=== PATIENT | male | born 1995 ===

== ENCOUNTER 2016-07-19 08:11 | Emergency (ER) | payer OTHER ==
[2016-07-19 08:17] VITALS: TEMP 97
[2016-07-19 08:18] VITALS: BMI 24.9
--- NOTE | 2016-07-19 08:26 | ED PDOC ---
HPI: General Adult Time Seen by Provider: 07/19/16 08:17 Chief Complaint (Provider): left arm pain History Per: Patient History/Exam Limitations: no limitations Onset/Duration Of Symptoms: Days (Today) Current Symptoms Are (Timing): Still Present Additional Complaint(s): 21yo male comes to the ED complaining of left wrist pain after falling while working today. States pain is severe. No head injury, loss of consciousness, weakness, numbness, tingling. Ambulated here. PMD: none Past Medical History Reviewed: Historical Data, Nursing Documentation, Vital Signs Vital Signs: Last Vital Signs Temp 97 F L 07/19/16 08:16 Pulse 88 07/19/16 08:16 Resp BP 109/71 07/19/16 08:16 Pulse Ox 99 07/19/16 08:38 - Medical History PMH: No Chronic Diseases Denies: Asthma, Diabetes - Surgical History Surgical History: No Surg Hx - Family History Family History: States: Unknown Family Hx - Home Medications Home Medications: Ambulatory Orders Medication Instructions Recorded Ibuprofen [Motrin] 600 mg PO TID 7 Days 07/19/16 - Allergies Allergies/Adverse Reactions: Allergies Allergy/AdvReac Type Severity Reaction Status Date / Time pollen extracts Allergy RASH Verified 07/19/16 08:42 prednisone Allergy REDNESS Verified 07/19/16 08:42 Review of Systems ROS Statement: Except As Marked, All Systems Reviewed And Found Negative Musculoskeletal: Positive for: Arm Pain, Hand Pain. Negative for: Shoulder Pain Neurological: Negative for: Weakness, Numbness, Headache Physical Exam - Reviewed Nursing Documentation Reviewed: Yes Vital Signs Reviewed: Yes - Physical Exam Appears: Positive for: Well, Non-toxic, No Acute Distress Head Exam: Positive for: ATRAUMATIC, NORMAL INSPECTION, NORMOCEPHALIC Skin: Positive for: Warm, Dry Eye Exam: Positive for: EOMI, PERRL Cardiovascular/Chest: Positive for: Regular Rate, Rhythm Respiratory: Positive for: Normal Breath Sounds Pulses-Radial (L): 2+ (ulnar pulse 2+) Extremity: Positive for: Capillary Refill (<2 seconds), Other (Good ulnar pulse. Good pulses. Tenderness dorsal and ventral hand in thenar. Mild tenderness to elbow area dorsally. Abrasion noted laterallly on dorsal aspect of left elbow). Negative for: Normal ROM (left arm: difficulty making a fist due to pain. 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 See pcp. Will splint for occult fx possibly. Procedures - Splinting Location: left wrist Pre-Made Type: velcro Splint: thumb spica Pre-Proc Neuro Vasc Exam: normal Post-Proc Neuro Vasc Exam: normal Disposition - Clinical Impression Clinical Impression: Occult fracture - Patient ED Disposition Is Patient to be Admitted: No Counseled Patient/Family Regarding: Studies Performed, Diagnosis, Need For Followup, Rx Given - Disposition Referrals: Kaivtha Fairbanks MD [Staff Provider] - 07/21/16 11:21 am Disposition: Routine/Home Disposition Time: 11:22 Condition: STABLE Additional Instructions: Return if not better in 3 days. You could have a fracture and need to get repeat x-ray and see the specialist without fail. Volver si no mejor en 3 webster. Podra tener shane fractura y necesita repetir la radiografa y el especialista sin falta. Prescriptions: Ibuprofen [Motrin] 600 mg PO TID 7 Days Instructions: SUSPECTED FRACTURE (ED) Forms: [facility] ED School/Work Excuse Print Language: BELARUSIAN Additional Comments - Additional Comments Additional Comments: Documented by Brayan Rboles acting as a scribe for Andrew Grant MD. All medical record entries made by the Scribe were at my direction and personally dictated by me. I have reviewed the chart and agree that the record accurately reflects my personal performance of the history, physical exam, medical decision making, and the department course for this patient. I have also personally directed, reviewed, and agree with the discharge instructions and disposition.
--- NOTE | 2016-07-19 11:09 | RAD ---
PROCEDURE: Radiographs of the left elbow. HISTORY: injury from fall COMPARISON: No prior. FINDINGS: BONES: Normal. No fracture. JOINTS: Normal. No osteoarthritis. SOFT TISSUES: Normal. JOINT EFFUSION: None. OTHER FINDINGS: None IMPRESSION: No radiographic evidence of acute fracture dislocation or significant joint effusion.
--- NOTE | 2016-07-19 11:12 | RAD ---
PROCEDURE: Left Wrist Radiographs. HISTORY: pain COMPARISON: None. FINDINGS: BONES: Normal. No fracture. JOINTS: Normal. No dislocation. SOFT TISSUES: Normal. OTHER FINDINGS: None. IMPRESSION: No definite radiographic evidence of acute fracture or dislocation. If indicated further assessment by CT may be obtained.
--- NOTE | 2016-07-19 11:13 | RAD ---
PROCEDURE: Left Hand Radiographs. HISTORY: fall COMPARISON: None. FINDINGS: BONES: Normal. No fracture. JOINTS: Normal. No osteoarthritic changes. SOFT TISSUES: Normal. OTHER FINDINGS: None. IMPRESSION: No evidence of acute fracture or dislocation.
[2016-07-19 12:04] VITALS: BP 100/70; PULSE 82; RESP 18; O2SAT 100
== END 2016-07-19 11:58 | disposition home or self-care (01) ==
LOC: H.ER 08:11
DX: S69.92XA Unspecified injury of left wrist, hand and finger(s), initial encounter (principal); W19.XXXA Unspecified fall, initial encounter; Y99.0 Civilian activity done for income or pay